=== PATIENT | male | born 1965 | race Caucasian/White ===

== ENCOUNTER 2018-02-27 07:12 | Outpatient (CLI) | payer BC ==
--- NOTE | 2018-02-27 08:39 | ULT ---
RIGHT UPPER QUADRANT ULTRASOUND: Date: 02/27/18 CLINICAL HISTORY: Elevated liver function enzymes. FINDINGS: There is increased echogenicity of the hepatic parenchyma without a focal hepatic lesion evident. Foc i of increased echogenicity are present within the gallbladder lumen, documented as mobile during the exam. Findings favor cholelithiasis. No abnormal gallbladder wall thickening. Norton's sign reported as negative. Common duct is normal. Incidental note of a hypoechoic focus of the lower aspect of the imaged right kidney measuring between 2 and 3 cm, indicative of a cyst. IMPRESSION: 1. Findings indicate cholelithiasis, without sonographic evidence of cholecystitis. 2. Hepatic steatosis is suggested. 3. Right renal cyst incidentally noted. POS: NAYANA
== END 2018-02-27 07:13 | disposition home or self-care (01) ==
LOC: SCSULT 07:12
PROVIDERS: ATTEND Family Medicine
DX: R74.0 Nonspecific elevation of levels of transaminase and lactic acid dehydrogenase [LDH] (principal); K80.20 Calculus of gallbladder without cholecystitis without obstruction
CPT/HCPCS: 76705